=== PATIENT | male | born 1985 | race Two or more races ===

== ENCOUNTER 2019-05-23 19:53 | Emergency (ER) | payer MEDICAID ==
[~2019-05-23] VITALS: Ht 165.1 cm; Wt 54.4 kg
[2019-05-23 20:05] VITALS: BP 122/75
--- NOTE | 2019-05-23 20:05 | NUR ---
ER Nurse Note: Pt came from home c/o face tingling and drooping that was established 05/22. Pt stated he noticed RT side of face tingling, drooping. On assessment, pupils equal and reactive to light, a&ox4, able to raise both eyebrows, bilateral hand quality control operator strong and present, no slurrered speech. Pt deines pain, ambulatory. Will continue to montior.
[2019-05-23] MEDS ORDERED: ARTIFICIAL TEAR15 ML LEFT EYE (20:24)
[2019-05-23] MEDS ORDERED: PREDNISONE20 MG ORAL (20:24)
[2019-05-23] MEDS ORDERED: VALACYCLOVIR500 MG ORAL (20:24)
[2019-05-23 20:35] VITALS: BP 122/75
--- NOTE | 2019-05-23 20:35 | NUR ---
ER Nurse Note: Pt seen, treated, medically cleared for discharge by ERMD. Discharge instuctions and prescriptions given with repeat verbalization by pt. Emphasized to follow up with primay care provider; take whole course of medication. Explained each medication. All orders completed per ERMD orders. Pt a&ox4, VSS, no signs of distress. ID band removed. All questions answered per pt's questions. Pt left with all belongings, left with own transportation.
--- NOTE | 2019-05-23 21:48 | Emergency Room Report ---
History of Present Illness General Chief Complaint: Stroke Symptoms Source: Patient Present Illness HPI 34-year-old male presents ED for evaluation. Presenting with left-sided facial droop x1 day. he is unable to raise his left eyebrow or close his left eye. Denies dysphagia. Denies slurred speech. Denies arm or leg weakness. No other aggravating relieving factors. Denies any other associated symptoms Allergies: Coded Allergies: No Known Allergies (Unverified , 05/23/19) Patient History Past Medical History: none Past Surgical History: none Pertinent Family History: none Social History: Denies: smoking, alcohol use, drug use Immunizations: UTD Reviewed Nursing Documentation: PMH: Agreed; PSxH: Agreed Nursing Documentation-PMH Past Medical History: No Stated History Review of Systems All Other Systems: negative except mentioned in HPI Physical Exam Vital Signs Date Time Temp Pulse Resp B/P (MAP) Pulse Ox O2 Delivery O2 Flow Rate FiO2 05/23/19 19:55 98.1 67 16 122/75 (91) 97 Room Air Sp02 EP Interpretation: reviewed, normal General Appearance: no apparent distress, alert, GCS 15, non-toxic Head: normocephalic, atraumatic Eyes: bilateral eye normal inspection, bilateral eye PERRL ENT: hearing grossly normal, normal pharynx, no angioedema, normal voice Neck: full range of motion, supple/symm/no masses Respiratory: chest non-tender, lungs clear, normal breath sounds, speaking full sentences Cardiovascular #1: regular rate, rhythm, no edema Cardiovascular #2: 2+ carotid (R), 2+ carotid (L), 2+ radial (R), 2+ radial (L) , 2+ dorsalis pedis (R), 2+ dorsalis pedis (L) Gastrointestinal: normal bowel sounds, non tender, soft, non-distended, no guarding, no rebound Rectal: deferred Genitourinary: normal inspection, no CVA tenderness Musculoskeletal: back normal, gait/station normal, normal range of motion, non- tender Neurologic: alert, oriented x3, responsive, speech normal, other - unable to raise L eyebrow. unable to close L eye Psychiatric: judgement/insight normal, memory normal, mood/affect normal, no suicidal/homicidal ideation Reflexes: 3+ bicep (R), 3+ bicep (L), 3+ tricep (R), 3+ tricep (L), 3+ knee (R) , 3+ knee (L) Lymphatic: no adenopathy Medical Decision Making Diagnostic Impression: Primary Impression: Lenz's palsy ER Course 34-year-old male presents to ED complaining of left sided facial droop x 1 day Differential diagnoses include: migraine, CVA/TIA, bells palsy Clinical course Patient placed on stretcher. on hall monitor. After initial history, physical exam reveals a male in no acute distress. There is no nuchal rigidity. Extraocular movements intact. There is no sensory deficit. Left- sided facial droop noted. Patient unable to raise left eyebrow or close left eye. 5 out of 5 motor strength in principal librarian bilateral lower extremities and upper extremities. No aphasia or slurred speech noted I discussed findings with patient. He is 34 years old with no significant medical history. Vitals stable. I do not suspect process such as stroke. 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 Reassurance given. Patient will not require CT imaging. Safe for discharge for close outpatient follow-up. Will provide prescription for valacyclovir, prednisone, artificial tears. States that he does not have a PMD. Will provide referrals I. I feel this is a highly complex case requiring extensive working including EKG/Rhythm strip, Xray/CT/US, Blood/urine lab work, repeat exams while in ED, and administration of strong opiates/narcotics for pain control, admission to hospital or close patient follow up. Diagnosis - [place] palsy Stable and discharged to home with prescription for valacyclovir, artificial tears, prednisone. Follow-up with PMD. Return to ED if symptoms recur or worsen Last Vital Signs Date Time Temp Pulse Resp B/P (MAP) Pulse Ox O2 Delivery O2 Flow Rate FiO2 05/23/19 20:35 98.1 86 16 122/75 97 Room Air Status: improved Disposition: HOME, SELF-CARE Condition: Stable Scripts Dextran 70/Hypromellose (ARTIFICIAL TEARS EYE DROPS*) 15 Ml Drops 1 DROP LEFT EYE QID for 7 Days, #15 ML 0 Refills Prov: Jacob Doran MD 05/23/19 Prednisone* (PREDNISONE*) 20 Mg Tablet 60 MG ORAL DAILY for 7 Days, TAB Prov: Jacob Doran MD 05/23/19 Valacyclovir Hcl* (VALTREX*) 500 Mg Tablet 1000 MG ORAL TID for 7 Days, TAB Prov: Jacob Doran MD 05/23/19 Referrals: [facility],REFERRING (PCP) [facility] Patient Instructions: Lenz Palsy Jacob Doran MD May 23, 2019 21:48
== END 2019-05-23 20:35 | disposition home or self-care (01) ==
LOC: EMR 20:13
DX: G51.0 Bell's palsy (principal)
CPT/HCPCS: 99282